=== PATIENT | female | born 1980 | race Two or more races ===

== ENCOUNTER 2020-11-26 15:37 | Emergency (ER) | payer OTHER ==
[~2020-11-26] VITALS: Ht 167.6 cm; Wt 69.4 kg
[2020-11-26] MEDS ORDERED: PRENATABS FA T1 EACH PO (20:38)
[2020-11-26] MEDS ORDERED: ZOFRAN8 MG PO (20:38)
[2020-11-27] MEDS ORDERED: NASAL MIST126 ML (00:08)
== END 2020-11-26 20:47 | disposition home or self-care (01) ==
LOC: ER 15:37
DX: O26.891 Other specified pregnancy related conditions, first trimester (principal); R31.9 Hematuria, unspecified; Z3A.08 8 weeks gestation of pregnancy